=== PATIENT | female | born 1990 | race African-American/Black ===

== ENCOUNTER 2021-12-15 23:21 | Emergency (ER) | payer MEDICAID ==
[~2021-12-15] VITALS: Ht 162.6 cm; Wt 45.0 kg
[2021-12-16] MEDS ORDERED: SODIUM CHLORIDE 0.9% 1,000 ML IVB ONE (08:30)
[2021-12-16 08:55] LABS: Eosinophils # (auto) 0.1 10 ^3/uL (0-0.8); Hemoglobin 10.9 g/dL (12.2-16.2); Monocytes # (auto) 0.4 10 ^3/uL (0-1.3)
[2021-12-16 08:57] LABS: Basophils # (auto) 0.1 10 ^3/uL (0-0.2); Basophils % (auto) 1.4 % (0.0-2.0); Eosinophils % (auto) 1.6 % (0.0-7.0); Hematocrit 32.3 % (36.0-46.0); Lymphocytes % (auto) 22.4 % (10.0-50.0); Mean Corpuscular Hemoglobin 36.4 pg (28.0-32.0); Mean Corpuscular Hgb Conc. 33.8 g/dL (32.0-36.0); Mean Corpuscular Volume 107.8 fL (80.0-100.0); Monocytes % (auto) 8.8 % (0.0-12.0); Neutrophils % (auto) 65.8 % (37.0-80.0); Nucleated Red Blood Cells % 0.6 %; Red Blood Cells 2.99 10^6/uL (4.0-5.20); White Blood Cell 4.5 10^3/uL (4.4-10.8)
[2021-12-16 09:07] LABS: Albumin 3.5 g/dL (3.4-5.0); BUN/Creatinine Ratio 14.8; Calcium 9.2 mg/dL (8.5-10.1); Magnesium 1.4 mg/dL (1.6-2.6)
[2021-12-16 09:10] LABS: Bilirubin, Total 1.4 mg/dL (0.2-1.0); Total Protein 6.7 g/dL (6.4-8.2)
[2021-12-16 09:19] LABS: Potassium 2.5 mmol/L (3.5-5.1)
[2021-12-16] MEDS ORDERED: POTASSIUM EFFERVESENT TAB 25 MEQ PO ONE (09:30)
[2021-12-16] MEDS: MAGNESIUM SULFATE 1GM/100ML 100 ML IV SCH ×2 (10:35→11:31)
[2021-12-16 10:59] LABS: Urine Bacteria FEW /hpf (None Seen); Urine Blood Negative /uL (Negative); Urine Mucus FEW (None Seen); Urine Specific Gravity 1.013 (1.001-1.035); Urine WBC 7 /hpf (0 - 5)
[2021-12-16 11:14] LABS: Alcohol, Urine < 3.0 mg/dL (0-10); Amphetamine Screen, Urine NEGATIVE (NEGATIVE); Barbiturate Scree,Urine NEGATIVE (NEGATIVE); Benzodiazephine Screen, Urine NEGATIVE (NEGATIVE); Cannabinoid Screen, Urine NEGATIVE (NEGATIVE); Cocaine Screen, Urine NEGATIVE (NEGATIVE); Opiate Scree,Urine NEGATIVE (NEGATIVE); Phencyclidine Screen, Urine NEGATIVE (NEGATIVE)
[2021-12-16] MEDS ORDERED: CHL25C GT (11:34)
[2021-12-16] MEDS ORDERED: CIPR-173 PO (11:34)
[2021-12-16] MEDS ORDERED: FOLITAB22 PO (11:34)
[2021-12-16] MEDS ORDERED: THIAMINE HCL 100 MG TAB PO ONE (11:45)
[2021-12-16] MEDS ORDERED: FOLIC ACID 1 MG TAB PO ONE (11:45)
[2021-12-16] MEDS ORDERED: FOLIC ACID 1 MG, MULTIPLE VITAMIN 10 ML, MAGNESIUM SULF SDV 50% 8 MEQ, THIAMINE INJ 100... INJ SCH ×5 (12:00)
[2021-12-16 14:05] VITALS: BP 106/59
== END 2021-12-16 14:19 | disposition home or self-care (01) ==
LOC: ER 23:21 → EDBD 23:21 → ER 12-16 14:19
DX: F10.930 Alcohol use, unspecified with withdrawal, uncomplicated (principal); F31.9 Bipolar disorder, unspecified; N39.0 Urinary tract infection, site not specified; E83.42 Hypomagnesemia; D75.89 Other specified diseases of blood and blood-forming organs; Y90.0 Blood alcohol level of less than 20 mg/100 ml
CPT/HCPCS: 36415; 80053; 80307; 81001; 83690; 83735; 84702; 85025; 96361; 96365; 96366; 99284; J3475; J7030